=== PATIENT | female | born 1975 | race African-American/Black ===

== ENCOUNTER 2017-12-10 09:16 | Emergency (ER) | payer OTHER ==
[~2017-12-10] VITALS: Ht 160 cm; Wt 63.0 kg
[2017-12-10 09:26] VITALS: BP 155/93; Ht 160 cm; Wt 63.0 kg
== END 2017-12-10 10:25 | disposition home or self-care (01) ==
LOC: ED 09:16
DX: R21 Rash and other nonspecific skin eruption (principal)

== ENCOUNTER 2018-10-14 10:47 | Emergency (ER) | payer OTHER ==
[~2018-10-14] VITALS: Ht 160 cm; Wt 63.0 kg
[2018-10-14 11:08] VITALS: Ht 160 cm; Wt 63.0 kg
[2018-10-14 12:01] LABS: BASOPHIL % 0.7 % (0-2)
[2018-10-14 12:02] LABS: PLATELET COUNT 454 x10^3mcL (130-400); RED CELL DISTRIBUTION WIDTH 17.5 % (11.5-14.5)
[2018-10-14 12:04] LABS: CALCIUM 9.5 mg/dL (8.5-10.1); CARBON DIOXIDE 26.9 mmol/L (21-32); CHLORIDE SERUM 102 mmol/L (98-107); CREATININE SERUM 0.8 mg/dL (0.6-1.0); GFR1 > 60 mL/min; GLUCOSE SERUM 85 mg/dL (74-106); SODIUM SERUM 140 mmol/L (136-145)
[2018-10-14 12:08] LABS: ALBUMIN 3.5 g/dL (3.4-5.0); ALKALINE PHOSPHATASE 93 U/L (46-116); ALT/SGPT 32 U/L (14-59); AMYLASE 28 U/L (25-115); AST/SGOT 14 U/L (15-37); BILIRUBIN TOTAL 0.3 mg/dL (0.20-1.00); LIPASE 65 IU/L (73-393)
[2018-10-14 12:09] LABS: TOTAL PROTEIN, SERUM 8.3 g/dL (6.4-8.2)
[2018-10-14 12:26] VITALS: BP 131/89
== END 2018-10-14 13:02 | disposition home or self-care (01) ==
LOC: ED 10:47
DX: D25.9 Leiomyoma of uterus, unspecified (principal)
CPT/HCPCS: 36415; J1885